=== PATIENT | female | born 1990 | race Hispanic/Latino ===

== ENCOUNTER 2017-01-11 10:30 | Emergency (ER) | payer OTHER ==
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
[2017-01-11] MEDS ORDERED: MOTRIN ONE (15:01)
[2017-01-11] MEDS ORDERED: MOTRIN PO ONE (15:01)
[2017-01-11 15:20] VITALS: BP 118/70
== END 2017-01-11 15:23 | disposition home or self-care (01) ==
LOC: ED 10:30
DX: S60.812A Abrasion of left wrist, initial encounter (principal); S90.511A Abrasion, right ankle, initial encounter; M54.2 Cervicalgia; G43.909 Migraine, unspecified, not intractable, without status migrainosus; M19.90 Unspecified osteoarthritis, unspecified site; K21.9 Gastro-esophageal reflux disease without esophagitis; V86.59XA Driver of other special all-terrain or other off-road motor vehicle injured in nontraffic accident, initial encounter; Y93.89 Activity, other specified; Y92.89 Other specified places as the place of occurrence of the external cause; Y99.8 Other external cause status
CPT/HCPCS: 70450; 72125

== ENCOUNTER 2017-04-26 20:08 | Emergency (ER) | payer OTHER ==
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
[2017-04-27 05:20] LABS: Hematocrit 41.4 % (30.3-42.9); Hemoglobin 14.2 gm/dl (10.1-14.3); Mean Corpuscular HGB Conc 34 % (30-34); Mean Corpuscular Hemoglobin 29 pg (28-32); Mean Corpuscular Volume 85 fl (79-97); Platelet Count 221 K/mm3 (140-440); Red Blood Count 4.85 M/mm3 (3.65-5.03); Red Cell Distribution Width 12.7 % (13.2-15.2); White Blood Count 5.8 K/mm3 (4.5-11.0)
[2017-04-27 05:44] LABS: Anion Gap 15 mmol/L; Blood Urea Nitrogen 12 mg/dL (7-17); Calcium 9.2 mg/dL (8.4-10.2); Carbon Dioxide 24 mmol/L (22-30); Chloride 102.5 mmol/L (98-107); Glucose 94 mg/dL (65-100); Potassium 3.7 mmol/L (3.6-5.0); Sodium 138 mmol/L (137-145)
[2017-04-27] MEDS ORDERED: NORCO 5/325 PO ONE (06:29)
[2017-04-27] MEDS ORDERED: FLEXERIL PO ONE (06:29)
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
[2017-04-27 07:35] VITALS: BP 105/69
== END 2017-04-27 07:37 | disposition home or self-care (01) ==
LOC: ED 20:08
DX: M54.2 Cervicalgia (principal); M54.9 Dorsalgia, unspecified; V89.2XXA Person injured in unspecified motor-vehicle accident, traffic, initial encounter; Y93.9 Activity, unspecified; Y99.9 Unspecified external cause status; Y92.410 Unspecified street and highway as the place of occurrence of the external cause
CPT/HCPCS: 36415; 70450; 71260; 72125; 74177; 80048; 84703; 85027